=== PATIENT | male | born 1985 | race Caucasian/White ===

== ENCOUNTER 2018-09-02 14:12 | Observation (INO) ==
[2018-09-02] MEDS ORDERED: Haloperidol Inj 5 MG/ML Ampul IV.PUSH ONE (14:17)
[2018-09-02] MEDS ORDERED: Sod Chloride 0.9% Inj 1,000 ML IV.SIG ONE ×2 (14:17→14:20)
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
[2018-09-02] MEDS ORDERED: Tetanus/Diphtheria Toxoid Adult Vaccine Inj 0.5 ML Vial IM ONE (14:54)
[2018-09-02 15:09] LABS: Baso % (Auto) 0.1 % (0.0-2.0); Eos % (Auto) 0.1 % (0.0-4.0); Hematocrit 47.5 % (39.0-51.0); Hemoglobin 16.1 gm/dL (13.0-17.0); Lymph # (Auto) 1.7 th/mm3 (1.0-4.8); Lymph % (Auto) 13.6 % (9.0-44.0); Mean Corpuscular Hemoglobin 32.4 pg (27.0-34.0); Mean Corpuscular Volume 95.5 fL (80.0-100.0); Mean Platelet Volume 8.8 fL (7.0-11.0); Mono # (Auto) 0.9 th/mm3 (0.0-0.9); Mono % (Auto) 7.1 % (0.0-8.0); Neut # (Auto) 9.9 th/mm3 (1.8-7.7); Neut % (Auto) 79.1 % (16.0-70.0); Platelet Count 343 th/mm3 (150-450); Red Blood Count 4.98 mil/mm3 (4.50-5.90); White Blood Count 12.5 th/mm3 (4.0-11.0)
[2018-09-02 15:33] LABS: Alanine Aminotransferase 125 U/L (12-78); Albumin 4.6 g/dL (3.4-5.0); Anion Gap 23 meq/L (5-15); Aspartate Aminotransferase 118 U/L (15-37); Blood Urea Nitrogen 9 mg/dL (7-18); Carbon Dioxide 17.1 meq/L (21.0-32.0); Chloride 101 meq/L (98-107); Glomerular Filtration Rate 38 mL/min (>89); Glucose,Random 125 mg/dL (74-106); Sodium 141 meq/L (136-145)
[2018-09-02 15:36] LABS: Alcohol 186 mg/dL (0-5)
[2018-09-02 15:40] LABS: Alkaline Phosphatase 95 U/L (45-117); Creatine Kinase 1978 U/L (39-308); Total Protein 8.8 g/dL (6.4-8.2)
[2018-09-02 15:56] LABS: CKMB Percent 0.7 % (0.0-4.0); Creatine Kinase MB 14.4 ng/mL (0.5-3.6)
[2018-09-02] MEDS ORDERED: Bisacodyl 10 MG Supp RECTAL PRN (17:10)
[2018-09-02] MEDS ORDERED: Haloperidol Inj 5 MG/ML Ampul IV.PUSH PRN (17:36)
[2018-09-02] MEDS ORDERED: LORazepam 1 MG Tablet PO PRN (17:36)
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
--- NOTE | 2018-09-02 17:59 | CT ---
EXAM DATE: 09/02/2018 4:20 PM EDT AGE/SEX: 33 years / Male INDICATIONS: Trauma; abrasions to head, altered mental status. CLINICAL DATA: This is the patient's initial encounter. Patient reports that signs and symptoms have been present for 1 day and indicates a pain score of 0/10. MEDICAL/SURGICAL HISTORY: None. None. RADIATION DOSE: 44.24 CTDI (mGy) COMPARISON: [facility] [place], CT BRAIN W/O CONTRAST, 08/26/2016. . TECHNIQUE: CT of the head without contrast. Using automated exposure control and adjustment of the mA and/or kV according to patient size, radiation dose was kept as low as reasonably achievable to ob tain optimal diagnostic quality images. DICOM format image data is available electronically for revi ew and comparison. FINDINGS: Cerebrum: The ventricles are normal for age. No evidence of midline shift, mass lesion, hemorrhage or acute infarction. No extraaxial fluid collections are seen. Posterior Fossa: The cerebellum and brainstem are intact. The 4th ventricle is midline. The cerebe llopontine angle is unremarkable. Extracranial: The visualized portion of the orbits is intact. Skull: The calvaria is intact. No evidence of skull fracture. CONCLUSION: 1. Negative CT Head non contrast. . Electronically signed by: Harlan Ellsworth MD 09/02/2018 5:58 PM EDT
[2018-09-02 18:54] LABS: ABG Base Excess -3.2 mmol/L (-2-2); ABG PCO2 40 mmHg (38-42); ABG PO2 91 mmHg (61-120)
[2018-09-02] MEDS: Heparin - SQ 10,000 UNITS/ML Vial SQ SCH (23:16)
[2018-09-02] MEDS: Senna/Docusate Sodium 8.6/50 MG Tablet PO SCH (23:16)
[2018-09-03 04:23] VITALS: TEMP 98.2; O2SAT 97
[2018-09-03 05:28] LABS: Baso % (Auto) 0.1 % (0.0-2.0); Eos % (Auto) 0.1 % (0.0-4.0); Hematocrit 41.3 % (39.0-51.0); Hemoglobin 14.4 gm/dL (13.0-17.0); Lymph # (Auto) 2.1 th/mm3 (1.0-4.8); Lymph % (Auto) 20.6 % (9.0-44.0); Mean Corpuscular HGB Conc 34.9 % (32.0-36.0); Mean Corpuscular Hemoglobin 33.1 pg (27.0-34.0); Mean Corpuscular Volume 94.8 fL (80.0-100.0); Mean Platelet Volume 8.8 fL (7.0-11.0); Mono # (Auto) 1.1 th/mm3 (0.0-0.9); Mono % (Auto) 10.4 % (0.0-8.0); Neut # (Auto) 6.9 th/mm3 (1.8-7.7); Neut % (Auto) 68.8 % (16.0-70.0); Platelet Count 197 th/mm3 (150-450); Red Blood Count 4.36 mil/mm3 (4.50-5.90); Red Cell Distribution Width 13.5 % (11.6-17.2); White Blood Count 10.1 th/mm3 (4.0-11.0)
[2018-09-03] MEDS ORDERED: Ibuprofen 400 MG Tablet PO PRN (05:29)
[2018-09-03 06:12] LABS: Alanine Aminotransferase 107 U/L (12-78); Albumin 3.4 g/dL (3.4-5.0); Anion Gap 10 meq/L (5-15); Aspartate Aminotransferase 192 U/L (15-37); Blood Urea Nitrogen 7 mg/dL (7-18); Calcium 7.9 mg/dL (8.5-10.1); Carbon Dioxide 27.5 meq/L (21.0-32.0); Chloride 105 meq/L (98-107); Glomerular Filtration Rate 70 mL/min (>89); Glucose,Random 92 mg/dL (74-106); Potassium 3.5 meq/L (3.5-5.1); Sodium 142 meq/L (136-145)
[2018-09-03] MEDS: Heparin - SQ 10,000 UNITS/ML Vial SQ SCH ×2 (06:20→06:25)
[2018-09-03 06:35] LABS: Alkaline Phosphatase 76 U/L (45-117); Creatine Kinase 9261 U/L (39-308); Total Protein 6.7 g/dL (6.4-8.2)
[2018-09-03 07:10] LABS: CKMB Percent 0.3 % (0.0-4.0); Creatine Kinase MB 26.9 ng/mL (0.5-3.6)
[2018-09-03 08:31] VITALS: BP 111/55; RESP 18
[2018-09-03] MEDS ORDERED: Folic Acid 1 MG Tablet PO SCH (09:00)
[2018-09-03] MEDS: Senna/Docusate Sodium 8.6/50 MG Tablet PO SCH (10:01)
--- NOTE | 2018-09-03 12:33 | P.PN ---
Subjective Interval history: Patient seen sleeping in bed. Will not wake or acknowledge me. Nursing denies any adverse events but does report that patient is refusing all medications other than IVF. Physical Exam Vital signs: Vital Signs 09/02/18 14:19 09/02/18 16:33 09/02/18 19:50 Temperature 97.8 F Pulse Rate 113 H 95 H 92 H Respiratory Rate 22 16 20 Blood Pressure 128/61 112/55 L 104/55 L Pulse Oximetry 100 98 92 L 09/02/18 20:00 09/02/18 20:50 09/02/18 23:47 Temperature 98.6 F Pulse Rate 91 H 98 H Respiratory Rate 18 Blood Pressure 123/68 Pulse Oximetry 93 L 99 09/03/18 04:00 09/03/18 08:00 Temperature 98.2 F 98.2 F Pulse Rate 97 H 86 Respiratory Rate 19 18 Blood Pressure 111/56 L 111/55 L Pulse Oximetry 97 97 Intake & Output 09/02/18 09/03/18 09/03/18 18:59 06:59 18:59 Intake Total 2100 / 2100 1000 / 1000 Balance 2100 / 2100 1000 / 1000 Weight 72.575 kg Intake: IV 2100 / 2100 1000 / 1000 LR 1000 mL Inj 1,000 ML @ 125 1000 / 1000 mls/hr IV.CONT .Q8H SEBAS Rx#: [id number] NS Inj 1,000 ML @ Wide Open IV. 1999 / 1999 SIG BOLUS ONE Rx#:[id number] Ancef Inj 1,000 MG In NS Inj 100 / 100 100 ML @ 100 mls/hr IV.SIG ONCE ONE Rx#:[id number] Other: Weight On Admission 72.575 kg Narrative: GENERAL: WDWN male patient, in no acute distress. No restraints. correction officer city [facility] jail at the bedside. SKIN: Warm and dry. Multiple superficial abrasions on left side of face, left shoulder and left forearm. +small superficial abrasions noted anterior knees. HEAD: Normocephalic. CARDIOVASCULAR: Regular rate and rhythm. RESPIRATORY: No accessory muscle use. Clear to auscultation anteriorly Breath sounds equal bilaterally. GASTROINTESTINAL: Abdomen soft, non-tender, nondistended. MUSCULOSKELETAL: Extremities without clubbing, cyanosis, or edema. NEUROLOGICAL: Unable to assess as patient will not follow commands or answer questions. Results - Labs CBC & Chem 7: 09/03/18 04:36 09/03/18 04:36 Laboratory Results - last 24 hr 09/02/18 09/02/18 09/02/18 14:40 14:42 14:42 WBC 12.5 H RBC 4.98 Hgb 16.1 Hct 47.5 MCV 95.5 MCH 32.4 MCHC 34.0 RDW 14.0 Plt Count 343 MPV 8.8 Neut % (Auto) 79.1 H Lymph % (Auto) 13.6 [place] % (Auto) 7.1 Eos % (Auto) 0.1 Baso % (Auto) 0.1 Neut # (Auto) 9.9 H Lymph # (Auto) 1.7 [place] # (Auto) 0.9 Eos # (Auto) 0.0 Baso # (Auto) 0.0 WBC Differential . Differential Comment Auto diff final Puncture Site Patient Temperature O2 Saturation ABG pH ABG pCO2 ABG pO2 ABG HCO3 ABG O2 Content ABG Base Excess ABG Methemoglobin Barron Test Hemoglobin Carboxyhemoglobin O2 Delivery Device Inspired O2 Critical Value Sodium 141 Potassium 4.0 Chloride 101 Carbon Dioxide 17.1 L Anion Gap 23 H BUN 9 Creatinine 2.06 H Estimated GFR 38 L POC Glucose 120 H Random Glucose 125 H Calcium 9.0 Total Bilirubin 0.5 AST 118 H ALT 125 H Alkaline Phosphatase 95 Total Creatine Kinase 1978 H CK-MB (CK-2) 14.4 H CK-MB (CK-2) % 0.7 Total Protein 8.8 H Albumin 4.6 Salicylates Acetaminophen Less than 2.0 L Serum Alcohol 186 H 09/02/18 09/02/18 09/03/18 14:42 18:44 04:36 WBC 10.1 RBC 4.36 L Hgb 14.4 Hct 41.3 MCV 94.8 MCH 33.1 MCHC 34.9 RDW 13.5 Plt Count 197 D MPV 8.8 Neut % (Auto) 68.8 Lymph % (Auto) 20.6 [place] % (Auto) 10.4 H Eos % (Auto) 0.1 Baso % (Auto) 0.1 Neut # (Auto) 6.9 Lymph # (Auto) 2.1 [place] # (Auto) 1.1 H Eos # (Auto) 0.0 Baso # (Auto) 0.0 WBC Differential . Differential Comment Auto diff final Puncture Site Right radial Patient Temperature 98.6 O2 Saturation 94 ABG pH 7.35 L ABG pCO2 40 ABG pO2 91 ABG HCO3 22 ABG O2 Content 18.3 ABG Base Excess -3.2 L ABG Methemoglobin 0.9 Barron Test Present Hemoglobin 13.8 Carboxyhemoglobin 1.9 O2 Delivery Device Ra Inspired O2 21 Critical Value No Sodium Potassium Chloride Carbon Dioxide Anion Gap BUN Creatinine Estimated GFR POC Glucose Random Glucose Calcium Total Bilirubin AST ALT Alkaline Phosphatase Total Creatine Kinase CK-MB (CK-2) CK-MB (CK-2) % Total Protein Albumin Salicylates 2.1 L Acetaminophen Serum Alcohol 09/03/18 04:36 WBC RBC Hgb Hct MCV MCH MCHC RDW Plt Count MPV Neut % (Auto) Lymph % (Auto) [place] % (Auto) Eos % (Auto) Baso % (Auto) Neut # (Auto) Lymph # (Auto) [place] # (Auto) Eos # (Auto) Baso # (Auto) WBC Differential Differential Comment Puncture Site Patient Temperature O2 Saturation ABG pH ABG pCO2 ABG pO2 ABG HCO3 ABG O2 Content ABG Base Excess ABG Methemoglobin Barron Test Hemoglobin Carboxyhemoglobin O2 Delivery Device Inspired O2 Critical Value Sodium 142 Potassium 3.5 Chloride 105 Carbon Dioxide 27.5 D Anion Gap 10 BUN 7 Creatinine 1.20 Estimated GFR 70 L POC Glucose Random Glucose 92 Calcium 7.9 L D Total Bilirubin 1.2 H AST 192 H ALT 107 H Alkaline Phosphatase 76 Total Creatine Kinase 9261 H CK-MB (CK-2) 26.9 H CK-MB (CK-2) % 0.3 Total Protein 6.7 D Albumin 3.4 D Salicylates Acetaminophen Serum Alcohol - Imaging Impressions Head CT 09/02/18 16:13 CONCLUSION: 1. Negative CT Head non contrast. . Assessment and Plan - Plan 33-year-old male without any significant past medical history who presented to [facility] under [place] act by police department due to acute psychosis Acute metabolic encephalopathy secondary to polysubstance abuse Metabolic anion gap acidosis, CO2 17.1, Anion gap 23 -Imaging negative for acute process. Anion gap WNL. -Continue IVF -Continuous cardiac monitoring -Supplemental oxygen -repeat BMP in am Substance induced acute psychosis under [place] Act Serum EtOH 186 -Consult psychiatry, appreciate assistance -[facility] protocol -thiamine 1gm IM now -Await results of urine drug screen Rhabdomyolysis CPK 1977 -IVF -repeat CPK in am -Monitor kidney function closely JOSE, secondary to rhabdomyolysis Creatinine 2.06, GFR 38 -IV fluid -Avoid nephrotoxic agents -Repeat BMP in a.m. DVT prophylaxis -Heparin sq Code Status: Full Discussed Condition With: patient, nursing staff, Dr. Lee
--- NOTE | 2018-09-03 12:53 | ECG ---
Date Performed: 09/02/2018 Time Performed: 14:52:37 PTAGE: 33 years EKG: SINUS TACHYCARDIA SMALL INFERIOR Q WAVES OF UNDETERMINED SIGNIFICANCE Compared to previous tracing, early repolarization changes no longer present and heart rate is faster. ABNORMAL RHYTHM ECG PREVIOUS TRACING : 12/24/2013 23.51 DOCTOR: Jg Sloan Interpretating Date/Time 09/03/2018 12:51:19
[2018-09-03 15:21] VITALS: PULSE 98
== END 2018-09-03 13:13 | disposition left against medical advice (07) ==
LOC: NEPD 14:12 → NEDA 14:12 → NEPHCDU 18:10
PROVIDERS: ADMIT Internal Medicine; ATTEND Internal Medicine
DX: E87.2 Acidosis; G92 Toxic encephalopathy; Z78.1 Physical restraint status; S00.81XA Abrasion of other part of head, initial encounter; Y90.6 Blood alcohol level of 120-199 mg/100 ml; M62.82 Rhabdomyolysis; Z91.19 Patient's noncompliance with other medical treatment and regimen; N17.9 Acute kidney failure, unspecified; F10.959 Alcohol use, unspecified with alcohol-induced psychotic disorder, unspecified; F17.210 Nicotine dependence, cigarettes, uncomplicated